=== PATIENT | male | born 1970 | race Caucasian/White ===

== ENCOUNTER → 2016-08-02 | Outpatient (CLI) | payer BC ==
[~2016-08-02] MED LIST: METO50TA7 PO
--- OUTSIDE RECORDS SUMMARY | 2016-08-02 11:56 | XMS REPORT | Continuity of Care Document ---
Author Author [facility] Organization [facility] Address Unknown Phone Unavailable Care Team Providers Care Animal Husbandry Professor Name Role Phone Corbin Brigida PCP [phone] Source Comments Some departments are not documenting in the electronic medical record. If you do not see the information that you expected, contact Release of Information in the Health Information Management department at [phone] for further assistance in locating additional records.[facility] Active Allergies and Adverse Reactions Allergen Noted Date Severity Reactions Comments Sulfa (Sulfonamide 06/03/2013 RASH, NAUSEA AND VOMITING Antibiotics) Current Medications Prescription Sig. Disp. Refills Start End Date Status Date lisinopril (PRINIVIL; Take 10 mg by mouth Active ZESTRIL) 10 mg tablet daily. 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
--- NOTE | 2016-08-02 12:27 | Diagnostic Imaging Report ---
INDICATION: Twisting injury to foot playing basketball. Pain on lateral aspect. TECHNIQUE: 3 views of the right foot. CORRELATION STUDY: None. FINDINGS: Two screws over the medial malleolus. The osseous structures of the right foot intact. Well-corticated bone density adjacent to the proximal navicular bone compatible with an accessory ossicle. Mild degenerative changes suggested about the first MTP joint with very mild joint space narrowing and early osteophyte formation. Soft tissues are unremarkable. IMPRESSION: Negative for acute bony abnormality of the right foot. Dictated by: Dictated on workstation # [id number]
== END ==
LOC: RAD 11:52
PROVIDERS: ATTEND Nurse Practitioner Family
DX: M79.671 Pain in right foot (principal)
CPT/HCPCS: 73630

== ENCOUNTER 2017-12-18 22:38 | Emergency (ER) | payer BC ==
[~2017-12-18] VITALS: Ht 167.6 cm; Wt 65.8 kg
[2017-12-18] MEDS ORDERED: VENL150C98 (23:18)
[2017-12-18] MEDS ORDERED: ATOR40TA70 (23:18)
[2017-12-18] MEDS ORDERED: PRED10TA22 PO (23:50)
--- NOTE | 2017-12-18 23:50 | ED Integumentary General ---
General Chief Complaint: Bite-Animal/Human/Insect Stated Complaint: POSSIBLE INSECT BITE Nursing Triage Note: POSS INSECT STING, LEFT EYE SWELLING Source: patient Exam Limitations: no limitations (WILFRED GILL MD) History of Present Illness Date Seen by Provider: Dec 18, 2017 Time Seen by Provider: 23:11 Initial Comments This is a 47 y/o male presenting to the ED vis private vehicle with chief complaint of a possible insect bite that has resulted in eyelid swelling. Pt reports that he was outside playing catch with his daughter when his forehead became itchy and started to swell around 1800. He states that he then noticed his L eyelid begin to swell and become itchy at 2100. He denies seeing any insects land on him. He states that he has not taken any antihistamines. He denies visual changes, eye pain, eye foreign bodies, throat swelling or SOB. (CAREY FREEMAN) Allergies and Home Medications Allergies Coded Allergies: Sulfa(Sulfonamide Antibiotics) (Verified Adverse Reaction, 08/04/12) Home Medications Prednisone 10 Mg Tab.ds.pk, 10 MG PO DAILY Prescribed by: WILFRED PATINO on 12/18/17 0250 Patient Home Medication List Home Medication List Reviewed: Yes (CAREY FREEMAN) Constitutional: no symptoms reported EENTM: see HPI; No ear discharge, No ear pain, No blurred vision, No eye pain, No throat swelling Respiratory: no symptoms reported; No short of breath Cardiovascular: no symptoms reported Skin: see HPI, pruritus (over the L forehead and L eyelid ), other (swelling of the L eyelid ) (CAREY FREEMAN) Past Cwaygqa-Rlbmfl-Zzaovy Hx Patient Social History Alcohol Use: Denies Use Recreational Drug Use: No Smoking Status: Never a Smoker 2nd Hand Smoke Exposure: No Recent Foreign Travel: No Contact w/Someone Who Travel: No Recent Infectious Disease Expo: No Recent Hopitalizations: No (WILFRED GILL MD) Immunizations Up To Date Tetanus Booster (TDap): Unknown (WILFRED GILL MD) Seasonal Allergies Seasonal Allergies: No (WILFRED GILL MD) Past Medical History Surgeries: Yes Adenoidectomy, Orthopedic, Tonsillectomy Respiratory: No Cardiac: Yes High Cholesterol, Hypertension Neurological: No Genitourinary: No Gastrointestinal: No Musculoskeletal: No Endocrine: No HEENT: No Cancer: No Psychosocial: No Integumentary: No Blood Disorders: No (WILFRED GILL MD) Physical Exam Vital Signs Vital Signs - First Documented 12/18/17 23:18 Temp 98.0 Pulse 73 Resp 18 B/P (MAP) 143/105 (118) Pulse Ox 100 O2 Delivery Room Air (CAREY FREEMAN) Vital Signs Capillary Refill : Less Than 3 Seconds (WILFRED GILL MD) General Appearance: WD/WN, no apparent distress HEENT: PERRL/EOMI, pharynx normal, other (erythema and swelling to the L upper eyelid with mild swelling of the L brow, EOM intact without pain, no foreign bodies seen on exam, eyelid is non tender to palpation) Cardiovascular: normal peripheral pulses, regular rate, rhythm, no edema, no gallop, no JVD, no murmur Respiratory: chest non-tender, lungs clear, normal breath sounds, no respiratory distress, no accessory muscle use Skin: warm/dry (CAREY FREEMAN) Progress/Results/Core Measures Results/Orders Medications Given in ED Current Medications Medications Dose Ordered Sig/Tiarra Route Start Time Stop Time Status Last Admin Dose Admin Prednisone 20 mg ONCE ONCE PO 12/19/17 00:00 12/19/17 00:00 DC 12/18/17 23:52 20 MG (CAREY FREEMAN) Vital Signs/I&O 12/18/17 12/18/17 23:18 23:53 Temp 98.0 98.0 Pulse 73 73 Resp 18 18 B/P (MAP) 143/105 (118) 143/105 (118) Pulse Ox 100 100 O2 Delivery Room Air (CAREY FREEMAN) Blood Pressure Mean: 118 Progress Progress Note : Progress Note This patient was personally seen, examined, and interviewed by me along with Carey's [employer]ENEE Freeman student. I agree with her history, exam, assessment, and plan with the following additions. Patient suspects he was bitten or stung by an insect 2 which she had an allergic reaction. The area around the left eye especially the superior aspect is swollen and pruritic. He has not taken any medications for this. He denies any other symptoms. His vision is unaffected. He was offered prednisone which she accepted. He will obtain some Benadryl umny-uie-dihbfit and take that as well. Exam: Gen.: Alert, oriented, no acute distress HEENT: edema over the left brow and left upper eyelid. Pupils equally reactive to light and accommodation. Vision grossly intact. Extraocular movements intact. Skin: Edema of the affected area above without significant erythema. Neuro: Alert, oriented, normal mood and affect. (WILFRED GILL MD) Progress Note : Time: 23:11 Progress Note Pt was seen and examined, stable without airway difficulties. Suspect an allergic reaction, no puncture sight was seen. Plan to DC home with prednisone and Benadryl. (CAREY FREEMAN MED STUDENT) Departure Impression Primary Impression: Allergic reaction Qualified Codes: T78.40XA - Allergy, unspecified, initial encounter Disposition: HOME, SELF-CARE Condition: Improved Departure-Patient Inst. Referrals: PARKER JOSE MD (PCP/Family) Primary Care Physician Patient Instructions: NO INSTRUCTIONS GIVEN Add. Discharge Instructions: You may take Benadryl (diphenhydramine) up to 50 mg every 6 hours as needed for itching and swelling. If you are not improving tomorrow, you may fill the prednisone prescription. Take prednisone with food or milk to avoid upset stomach. All discharge instructions reviewed with patient and/or family. Voiced understanding. Scripts Prednisone (Prednisone) 10 Mg Tab.ds.pk 10 MG PO DAILY, #4 EA Prov: WILFRED GILL MD 12/18/17 WILFRED GILL MD Dec 18, 2017 23:50 CAREY FREEMAN MED STUDENT Dec 19, 2017 03:33
[2017-12-18 23:53] VITALS: BP 143/105
[2017-12-19] MEDS ORDERED: predniSONE 20 MG TAB PO ONE
== END 2017-12-18 23:53 | disposition home or self-care (01) ==
LOC: EDUNIT# 22:38 → ER 22:39
DX: T78.40XA Allergy, unspecified, initial encounter (principal); H02.846 Edema of left eye, unspecified eyelid; E78.00 Pure hypercholesterolemia, unspecified; I10 Essential (primary) hypertension; Z88.2 Allergy status to sulfonamides; Z79.52 Long term (current) use of systemic steroids; Z90.89 Acquired absence of other organs
CPT/HCPCS: 99283

== ENCOUNTER 2019-06-20 11:07 | Emergency (ER) | payer BC ==
[~2019-06-20] VITALS: Ht 167 cm; Wt 80.9 kg
[~2019-06-20 11:07] MED LIST changes: +ATOR40TA70; +PRED10TA22 PO; +VENL150C98
[2019-06-20] MEDS ORDERED: HYDR-4226 PO (11:31)
[2019-06-20] MEDS ORDERED: METH-313 PO (11:31)
[2019-06-20] MEDS ORDERED: PRD20T PO (11:31)
--- NOTE | 2019-06-20 11:32 | ED Back Pain ---
General Chief Complaint: Back Problems Stated Complaint: BACK PAIN Nursing Triage Note: COMPLAINS OF MID BACK PAIN. NON INJURY Nursing Sepsis Screen: No Definite Risk Source of Information: Patient Exam Limitations: No Limitations History of Present Illness Date Seen by Provider: Jun 20, 2019 Time Seen by Provider: 11:27 Initial Comments To ER with reports of midline lumbar spine pain for the past 3-4 days. This beg an suddenly when he was in the bathroom after having a bowel movement, reach/twisted to wipe himself and had sudden onset of sharp pain. The pain does not radiate down either leg. No loss of bowel or bladder control. No loss of sensation of the genitals. He does have a history of L3-L4 surgery of some sort many years ago. He does report a sensation of intermittent spasms and cramps .Certain movements/twisting reproduce this sharp pain and certain positions completely alleviate it. Location: Lumbar Spine Timing/Duration: 2-3 Days Severity: Moderate Pain/Injury Location: Back Associated Symptoms: lower back pain Allergies and Home Medications Allergies Coded Allergies: Sulfa(Sulfonamide Antibiotics) (Verified Adverse Reaction, 08/04/12) Home Medications Prednisone 10 Mg Tab.ds.pk, 10 MG PO DAILY Prescribed by: WILFRED PATINO on 12/18/17 5684 Patient Home Medication List Home Medication List Reviewed: Yes Review of Systems Constitutional: see HPI EENTM: see HPI Respiratory: no symptoms reported Cardiovascular: no symptoms reported Genitourinary: no symptoms reported Musculoskeletal: see HPI, back pain Skin: no symptoms reported Psychiatric/Neurological: No Symptoms Reported Past Qxwbjze-Qsghoq-Tlazww Hx Patient Social History Alcohol Use: Occasionally Uses Recreational Drug Use: No Smoking Status: Never a Smoker 2nd Hand Smoke Exposure: No Recent Foreign Travel: No Contact w/Someone Who Travel: No Recent Infectious Disease Expo: No Recent Hopitalizations: No Immunizations Up To Date Tetanus Booster (TDap): Unknown Seasonal Allergies Seasonal Allergies: No Past Medical History Surgeries: Yes Adenoidectomy, Orthopedic, Tonsillectomy Respiratory: No Cardiac: Yes High Cholesterol, Hypertension Neurological: No Genitourinary: No Gastrointestinal: No Musculoskeletal: No Endocrine: No HEENT: No Cancer: No Psychosocial: No Integumentary: No Blood Disorders: No Physical Exam Vital Signs Vital Signs - First Documented 06/20/19 11:18 Temp 36.5 Pulse 80 Resp 16 B/P (MAP) 123/84 (97) Pulse Ox 99 O2 Delivery Room Air Capillary Refill : Less Than 3 Seconds Height, Weight, BMI Height: 5'6" Weight: 145lbs. oz. 65.358896hc; 29.00 BMI Method:Stated General Appearance: No Apparent Distress, WD/WN Neck: Full Range of Motion, Normal Inspection Respiratory: Normal Breath Sounds, No Accessory Muscle Use, No Respiratory Distress Gastrointestinal: Normal Bowel Sounds, Non Tender, Soft Back: Normal Inspection; No Muscle Spasm, No Vertebral Tenderness Extremity: Normal Capillary Refill, Normal Inspection Neurologic/Psychiatric: Alert, Oriented x3 Skin: Normal Color, Warm/Dry Progress/Results/Core Measures Results/Orders Vital Signs/I&O 06/20/19 11:18 Temp 36.5 Pulse 80 Resp 16 B/P (MAP) 123/84 (97) Pulse Ox 99 O2 Delivery Room Air Blood Pressure Mean: 97 POS Departure Impression Primary Impression: Acute lumbar myofascial strain Qualified Codes: S39.012A - Strain of muscle, fascia and tendon of lower back, initial encounter Disposition: 01 HOME, SELF-CARE Condition: Stable Departure-Patient Inst. Decision time for Depature: 11:30 Referrals: PARKER JOSE MD (PCP/Family) Primary Care Physician Patient Instructions: Low Back Pain (DC) Add. Discharge Instructions: 1. Medication as directed 2. Return to ER for any concerns 3. Call Dr. Jose to make an appointment for follow-up. If this pain fails to resolve you may need a repeat MRI. All discharge instructions reviewed with patient and/or family. Voiced understanding. Scripts Methocarbamol (Robaxin-750) 750 Mg Tablet 750 MG PO Q6H PRN for PAIN-SEVERE (8-10), #14 TAB Prov: ELKIN SANTO APRN 06/20/19 Hydrocodone/Acetaminophen ([place] 5-325 Tablet) 1 Each Tablet 1 TAB PO Q4-6HR for Pain MDD 10 TABS for 7 Days, #14 TAB Prov: ELKIN SANTO APRN 06/20/19 Prednisone (Prednisone) 20 Mg Tab 40 MG PO DAILY, #8 TAB 0 Refills Prov: ELKIN SANTO APRN 06/20/19 Work/School Note: Work Release Form Date Seen in the Emergency Department: Jun 20, 2019 Return to Work: Jun 21, 2019 Copy Copies To 1: PARKER JOSE MD, PETER J APRN Jun 20, 2019 11:32 POS
[2019-06-20 11:39] VITALS: BP 123/84
== END 2019-06-20 11:38 | disposition home or self-care (01) ==
LOC: EDUNIT# 11:07 → ER 11:09
DX: S39.012A Strain of muscle, fascia and tendon of lower back, initial encounter (principal); I10 Essential (primary) hypertension; E78.00 Pure hypercholesterolemia, unspecified; Z88.2 Allergy status to sulfonamides; Z90.89 Acquired absence of other organs; X50.1XXA Overexertion from prolonged static or awkward postures, initial encounter; Y92.002 Bathroom of unspecified non-institutional (private) residence as the place of occurrence of the external cause
CPT/HCPCS: 99281